=== PATIENT | female | born 1990 | race American Indian/Alaskan Native ===

== ENCOUNTER 2023-03-29 06:30 | Day surgery (SDC) | payer BC, OTHER ==
[2023-03-22 14:28] VITALS: BP 102/63
[~2023-03-29] VITALS: Ht 162.6 cm; Wt 76.0 kg
[~2023-03-29 06:30] MED LIST: BACTRIM DS TAB1 EACH PO; CETIRIZINE HCL10 MG PO; CLEOCIN HCL300 MG PO; ESTRADIOL2 MG PO; FLUDROCORTISON0.1 MG PO; FLUTICASONE PRO16 GM NAS; HYDROCODON-ACE1 EA10 PO; HYDROCORTISONE20 MG PO; IBUPROFEN800 MG PO; LEVOTHYROXINE25 MCG PO; MEDROXYPROGESTE10 MG PO; PENICILLIN V P500 MG PO; TYLENOL325 MG PO; VITAMIN D21250 MCG
[2023-03-29 06:48] VITALS: BP 108/71
--- NOTE | 2023-03-29 09:40 | NUR ---
03/29/23 0940 Dede Ron 6222-PATIENT ARRIVED TO PACU ON 2L NC RR EVEN. PATIENT REACTIVE TO VERBAL STIMULI REMAINS VERY DROWSY OPENING EYES. PATIENT NODS HEAD NO TO PAIN OR NAUSEA. DOZES BACK TO SLEEP. BETTY PAD IN PLACE CDI. IVF INFUSING. SR.
[2023-03-29 10:16] VITALS: BP 104/77
--- NOTE | 2023-04-02 10:33 | OR ---
[facility] [address] [place], [place] [address] Signed DATE OF OPERATION: 03/29/2023 SURGEON: Emily Ferguson MD PREOPERATIVE DIAGNOSES: Postmenopausal bleeding, premature menopause, David's disease. POSTOPERATIVE DIAGNOSES: Postmenopausal bleeding, premature menopause, [place]'s disease with endometrial polyps. PROCEDURE: Hysteroscopy, resection of polyps. ANESTHESIA: MAC. ESTIMATED BLOOD LOSS: Minimal. DRAINS: None. INDICATIONS AND FINDINGS: The patient is a 32-year-old female, who has a history of premature menopause. She has been on hormone replacement, but forgot to take any of her progesterone for several months and developed abnormal bleeding. Her exam under anesthesia was normal. At hysteroscopy, there were multiple polyps within the cavity. The patient received stress dose steroids prior to her surgery for her history of [place]'s disease. DESCRIPTION OF PROCEDURE: The patient was prepped and draped in the dorsal lithotomy position. A weighted speculum was placed. The anterior lip of the cervix was visualized and grasped with a single-tooth tenaculum. The cavity was sounded to 8 cm. The endocervical canal was dilated to a #8 dilator. The MyoSure device was placed and the cavity evaluated. Multiple polyps were seen. The MyoSure Lite was then placed. The polyps were removed using the MyoSure Lite. The cavity appeared clean following resection. The procedure was then terminated. The instruments were removed from the vagina. Ring forcep was required to control some bleeding from the right hand tenaculum site. Following this, there was no evidence of any ongoing bleeding. The patient was taken to the recovery Electronically Signed By: EMILY FERGUSON MD 04/02/23 1033 PATIENT NAME: PRACHI NY OPERATIVE REPORT DATE OF : 86 REPORT #: [id number] PHYSICIAN: EMILY FERGUSON MD PCP: BRITTNEY CHENG REPORT IS CONFIDENTIAL AND NOT TO BE RELEASED WITHOUT AUTHORIZATION [facility] [address] [facility], [place] [address] Signed room in good condition. All sponge and needle counts were correct. Emily Ferguson MD PJW/AIDA /[id number] cc: Copies: ~ Electronically Signed By: EMILY FERGUSON MD 04/02/23 1033 PATIENT NAME: PRACHI NY OPERATIVE REPORT DATE OF : 86 REPORT #: [id number] PHYSICIAN: EMILY FERGUSON MD PCP: BRITTNEY CHENG REPORT IS CONFIDENTIAL AND NOT TO BE RELEASED WITHOUT AUTHORIZATION
--- NOTE | 2023-04-03 15:32 | PATH ---
[facility] [address] [place], [place] [address] Signed SPECIMEN(S): A ENDOMETRIAL POLYPS SPECIMEN SOURCE: A. ENDOMETRIAL POLYPS CLINICAL HISTORY: Endometrial polyps. AUB, endometrial polyp, [place]'s disease, premature menopause. FINAL PATHOLOGIC DIAGNOSIS: Endometrial polyps: - Proliferative endometrium with focal endometrial polyp formation. - Negative for hyperplasia or atypia. - Benign endocervical mucosa. JVR:toño MICROSCOPIC EXAMINATION: Histologic sections of all submitted blocks are examined by light microscopy. These findings, together with the gross examination, support the pathologic diagnosis. GROSS DESCRIPTION: The specimen, labeled and designated "Morningowl, endometrial polyps," is received in formalin and consists of multiple fragments of red-brown soft tissue (2.7 x 1.4 x 0.3 cm in aggregate). The specimen is submitted entirely in cassette (A1). VB (under the direct supervision of a pathologist) The Gross Description was prepared using a voice recognition system. The report was reviewed for accuracy; however, sound-alike word errors, addition and/or deletions may occur. If there is any question about this report, please contact Client Services. PERFORMING LABORATORY: Technical component was performed by [facility], [address] [place] [id number] (CLIA# [id number]). Professional interpretation was performed by [facility], [address] [place] [id number] (CLIA#: [id number]). Diagnostician: Henry Tineo MD Pathologist Electronically Signed 04/03/2023 PATIENT NAME: PRACHI NY PATHOLOGY DATE OF : 86 REPORT #: [id number] PHYSICIAN: HAZEL BLOANOS PCP: BRITTNEY CHENG REPORT IS CONFIDENTIAL AND NOT TO BE RELEASED WITHOUT AUTHORIZATION [address] [address] Signed Copies: ~ PATIENT NAME: PRACHI NY PATHOLOGY DATE OF : 86 REPORT #: [id number] PHYSICIAN: [facility] PCP: BRITTNEY CHENG REPORT IS CONFIDENTIAL AND NOT TO BE RELEASED WITHOUT AUTHORIZATION
== END 2023-03-29 10:20 | disposition home or self-care (01) ==
LOC: DS 06:30
PROVIDERS: ATTEND Obstetrics & Gynecology
PROC: 0UB98ZZ Excision of Uterus, Via Natural or Artificial Opening Endoscopic (ICD-10-PCS; principal; 2023-03-29 09:00)
DX: N84.0 Polyp of corpus uteri (principal); E28.319 Asymptomatic premature menopause; E27.1 Primary adrenocortical insufficiency; Z79.52 Long term (current) use of systemic steroids
CPT/HCPCS: 00952; J1720; J1885; J2001; J2250; J2405; J2704; J2765; J3490; J7121

== ENCOUNTER 2023-10-26 09:51 | Emergency (ER) | payer BC ==
[~2023-10-26] VITALS: Ht 162.6 cm; Wt 73.3 kg
[2023-10-26 11:06] LABS: HEMATOCRIT 32.6 % (35.0-50.0); MCH 31.2 (27-36); MCHC 33.6 g/dl (30-36); PLATELET COUNT 250 K/uL (140-440); RBC 3.51 M/ul (4.3-5.7); RDW 13.6 (10.5-15.0)
[2023-10-26 11:17] LABS: ALBUMIN 2.9 g/dL (3.4-5.0); ALBUMIN/GLOBULIN RATIO 0.97 (1.1-2.4); ANION GAP 12.4 (7-21); BILIRUBIN, TOTAL 0.5 ng/dL (0.2-1.0); BUN/CREATININE RATIO 20.63 (6.0-28.6); CALCIUM 7.4 mg/dL (8.5-10.1); CREATININE, SERUM 0.63 mg/dL (0.55-1.02); POTASSIUM 3.4 mmol/L (3.5-5.1); PROTEIN, TOTAL 5.9 g/dL (6.4-8.2)
[2023-10-26 11:18] LABS: EOSINOPHILS, MANUAL DIFF 1; LYMPHOCYTES, MANUAL DIFF 46; MONOCYTES, MANUAL DIFF 1; NEUTROPHILS, MANUAL DIFF 52
[2023-10-26 11:49] LABS: BILIRUBIN, URINE NEGATIVE (negative); BLOOD/HGB, URINE NEGATIVE (Negative); KETONE, URINE NEGATIVE (Negative); LEUK ESTERASE, URINE NEGATIVE (negative); NITRITE, URINE NEGATIVE (negative)
[2023-10-26] MEDS ORDERED: FUROSEMIDE20 MG PO (12:25)
[2023-10-26] MEDS ORDERED: K-TAB ER20 MEQ PO (12:25)
[2023-10-26] MEDS ORDERED: POTASSIUM CHLORIDE 10 MEQ TABCR PO ONE (12:30)
[2023-10-26] MEDS ORDERED: FUROSEMIDE 20 MG TAB PO ONE (12:30)
[2023-10-26 12:39] VITALS: BP 152/90
== END 2023-10-26 12:40 | disposition home or self-care (01) ==
LOC: ED 09:51
PROVIDERS: Emergency Medicine
DX: R60.9 Edema, unspecified (principal); E27.40 Unspecified adrenocortical insufficiency; Z88.0 Allergy status to penicillin; Z79.899 Other long term (current) drug therapy
CPT/HCPCS: 36415; 80053; 81003; 84703; 85025; 99283; A9270